=== PATIENT | female | born 1955 | race Caucasian/White ===

== ENCOUNTER → 2016-09-28 | Outpatient (CLI) | payer OTHER ==
[~2016-09-28] VITALS: Ht 167.6 cm; Wt 85.7 kg
[~2016-09-28] MED LIST: IBUP200C PO; LIDOCAINE 2% INJ 100 MG/5 ML SDV (FOR ANES.) As Ordered ONE; NS 1,000 ML IV ONE; PROPOFOL 500 MG/50 ML VIAL As Ordered ONE
--- NOTE | 2016-09-28 08:21 | ROOR ---
Patient Name: Rosenda Tsang Procedure Date: 09/28/2016 8:00 AM Date of : 1955 Age: 61 Room: [facility] Gender: Female Note Status: Finalized Procedure: Upper GI endoscopy + Biopsies Indications: Functional Dyspepsia, Heartburn Providers: Scar Arguelles MD Referring MD: MIKE RODRIGUEZ NP Requesting Provider: Medicines: Monitored Anesthesia Care Complications: No immediate complications. Procedure: Pre-Anesthesia Assessment: - The heart rate, respiratory rate, oxygen saturations, blood pressure, adequacy of pulmonary ventilation, and response to care were monitored throughout the procedure. The Endoscope was introduced through the mouth, and advanced to the second part of duodenum. The upper GI endoscopy was accomplished without difficulty. The patient tolerated the procedure well. Findings: The Z-line was irregular and was found 35 cm from the incisors. Multiple biopsies were obtained with cold forceps for evaluation to rule out Lewis's Esophagus randomly at the gastroesophageal junction. A small hiatal hernia was present. No other significant abnormalities were identified in a careful examination of the stomach. Biopsies were taken with a cold forceps in the gastric antrum for Helicobacter pylori testing. The exam of the duodenum was otherwise normal. Impression: - Z-line irregular, 35 cm from the incisors. - Small hiatal hernia. - Multiple biopsies were obtained at the gastroesophageal junction. - Biopsies were taken with a cold forceps for Helicobacter pylori testing. - The examination was otherwise normal. Recommendation: - Patient has a contact number available for emergencies. The signs and symptoms of potential delayed complications were discussed with the patient. Return to normal activities tomorrow. Written discharge instructions were provided to the patient. - High fiber diet. - Discharge patient to home. - Continue present medications. - Await pathology results. - Telephone GI clinic for pathology results in 1 week. - Check Portal Online for Path Results.([email or web address] - Return to referring physician. - Repeat upper endoscopy for surveillance based on pathology results. - The findings and recommendations were discussed with the patient's family. Scar Arguelles MD Scar Arguelles MD 09/28/2016 8:21:13 AM This report has been signed electronically. Number of Addenda: 0 Note Initiated On: 09/28/2016 8:00 AM Estimated Blood Loss: Estimated blood loss: none.
--- NOTE | 2016-09-28 08:45 | ROOR ---
Patient Name: Rosenda Tsang Procedure Date: 09/28/2016 8:02 AM Date of : 1955 Age: 61 Room: [facility] Gender: Female Note Status: Finalized Procedure: Colonoscopy to Cecum + Cold Snare Polypectomy + Hemoclip Indications: High risk colon cancer surveillance: Personal history of colonic polyps, Last colonoscopy: 2013 Providers: Scar Arguelles MD Referring MD: MIKE RODRIGUEZ NP Requesting Provider: Medicines: Monitored Anesthesia Care Complications: No immediate complications. Procedure: Pre-Anesthesia Assessment: - The heart rate, respiratory rate, oxygen saturations, blood pressure, adequacy of pulmonary ventilation, and response to care were monitored throughout the procedure. The Colonoscope was introduced through the anus and advanced to the cecum, identified by appendiceal orifice and ileocecal valve. The colonoscopy was performed without difficulty. The patient tolerated the procedure well. The quality of the bowel preparation was good. Findings: The perianal and digital rectal examinations were normal. Non-bleeding internal hemorrhoids were found during retroflexion. The hemorrhoids were small and Grade I (internal hemorrhoids that do not prolapse). Multiple small and large-mouthed diverticula were found in the recto-sigmoid colon, sigmoid colon and descending colon. A medium polyp was found in the splenic flexure. The polyp was sessile. The polyp was removed with a cold snare. Resection and retrieval were complete. A medium polyp was found in the proximal transverse colon. The polyp was sessile. The polyp was removed with a cold snare. Resection and retrieval were complete. To prevent bleeding after the polypectomy, one hemostatic clip was successfully placed (MR conditional). There was no bleeding at the end of the procedure. The exam was otherwise without abnormality on direct and retroflexion views. Impression: - Non-bleeding internal hemorrhoids. - Diverticulosis in the recto-sigmoid colon, in the sigmoid colon and in the descending colon. - One medium polyp at the splenic flexure, removed with a cold snare. Resected and retrieved. - One medium polyp in the proximal transverse colon, removed with a cold snare. Resected and retrieved. Clip (MR conditional) was placed. - The examination was otherwise normal on direct and retroflexion views. - The exam was otherwise normal to the cecum. Recommendation: - Patient has a contact number available for emergencies. The signs and symptoms of potential delayed complications were discussed with the patient. Return to normal activities tomorrow. Written discharge instructions were provided to the patient. - High fiber diet. - Discharge patient to home. - Continue present medications. - Await pathology results. - Telephone GI clinic for pathology results in 1 week. - Check Portal Online for Path Results.([email or web address]) - Repeat colonoscopy for surveillance based on pathology results. - The findings and recommendations were discussed with the patient's family. Scar Arguelles MD Scar Arguelles MD 09/28/2016 8:45:17 AM This report has been signed electronically. Number of Addenda: 0 Note Initiated On: 09/28/2016 8:02 AM Estimated Blood Loss: Estimated blood loss: none.
[2016-09-28 09:10] VITALS: BP 129/79
== END ==
LOC: M OPP 07:13
PROVIDERS: ATTEND Internal Medicine Gastroenterology
DX: Z12.11 Encounter for screening for malignant neoplasm of colon (principal); K64.0 First degree hemorrhoids; K57.30 Diverticulosis of large intestine without perforation or abscess without bleeding; D12.3 Benign neoplasm of transverse colon; R12 Heartburn; K22.8 Other specified diseases of esophagus; K44.9 Diaphragmatic hernia without obstruction or gangrene; K29.50 Unspecified chronic gastritis without bleeding; K22.70 Barrett's esophagus without dysplasia; Z87.891 Personal history of nicotine dependence

== ENCOUNTER → 2016-12-23 | Outpatient (CLI) | payer OTHER ==
[~2016-12-23] MED LIST changes: -IBUP200C PO; +IBUP200C10 PO; -LIDOCAINE 2% INJ 100 MG/5 ML SDV (FOR ANES.) As Ordered ONE; -NS 1,000 ML IV ONE; -PROPOFOL 500 MG/50 ML VIAL As Ordered ONE
--- NOTE | 2016-12-23 10:22 | REPMRS ---
Patient History The patient states she had a clinical breast exam in 11/12 Patient is postmenopausal. Family history of unknown cancer in father at age 58 and unknown cancer in sister at age 29. Took hormonal contraceptives for 8 years. Digital Woman Screen Mammo: December 23, 2016 - Exam #: [id number] Bilateral CC and MLO view(s) were taken. Technologist: Lilly Munson, Technologist Prior study comparison: August 16, 2013, bilateral bilat screen digital mammo, performed at [facility] ([facility]). April 27, 2012, bilateral bilat screen digital mammo, performed at [facility] ([facility]). FINDINGS: There are scattered fibroglandular densities. There has been no change in the appearance of the mammogram from the prior studies. There is a mild amount of residual fibroglandular tissue which is fairly symmetric. There is no interval development of dominant mass, architectural distortion, or clustered microcalcification suggestive of malignancy. ASSESSMENT: BI-RADS/ACR category 1 mammogram. Negative. Recommendation Routine screening mammogram in 1 year (for women over age 40). This mammogram was interpreted with the aid of an FDA-approved computer-aided dectection system. Electronically Signed By: Michael Orozco MD 12/23/16 [id number]
--- NOTE | 2016-12-26 12:21 | DEXA ---
AP SPINE L1 - L4 0.995 -1.5 -0.1 LT FEMUR TOTAL 0.944 -0.5 0.6 RT FEMUR TOTAL 0.917 -0.7 0.4 TOTAL BODY TOTAL OTHER DUAL FEMUR FRAX* ASSESSMENT Risk factors: None. 10 year probability of fracture Major osteoporotic fracture 7.5 % Hip fracture 0.5 % COMMENTS: Normal bone densitometry of the right hip. There is low bone density of the spine. There is low bone density of the left hip The decreased density of the spine does represent a significant change. The decreased density of the left hip does not represent a significant change. The increased density of the right hip does represent a significant change. The density of the spine has decreased 4.3% since the initial exam on 2011. The spine density has decreased 3.8% since the most recent exam on 08/16/2013. The density of the left hip has increased 1.5% since the initial exam on 2011. The density of the left hip has decreased 0.7% since the most recent exam on . The density of the right hip has increased 1.3% since the initial exam on 2011. The density of the right hip has increased 2.7% since the most recent exam on . FOLLOW-UP: Recommendation for the next bone density exam: 2 years. MATT
== END ==
LOC: M WHC 09:31
PROVIDERS: ATTEND Nurse Practitioner Family
DX: Z12.39 Encounter for other screening for malignant neoplasm of breast (principal); M85.9 Disorder of bone density and structure, unspecified

== ENCOUNTER → 2019-12-01 | Outpatient (CLI) | payer MEDICARE, BC ==
[~2019-12-01] MED LIST changes: -IBUP200C10 PO; +IBUP200C25 PO
== END ==
LOC: M LABSMTC 10:02
PROVIDERS: ATTEND Anesthesiology
DX: Z03.818 Encounter for observation for suspected exposure to other biological agents ruled out (principal); Z11.59 Encounter for screening for other viral diseases
CPT/HCPCS: C9803; U0003

== ENCOUNTER 2019-12-04 07:57 | Day surgery (SDC) | payer MEDICARE, BC ==
[~2019-12-04] VITALS: Ht 165.1 cm; Wt 88.9 kg
[~2019-12-04 07:57] MED LIST changes: +NS 1,000 ML IV ONE
[2019-12-04] MEDS ORDERED: fentaNYL 100 MCG/2 ML INJECTION (J3010) As Ordered ONE (09:29)
[2019-12-04] MEDS ORDERED: LIDOCAINE 2% 100MG/5ML SDV (FOR ANES.) As Ordered ONE (09:29)
[2019-12-04] MEDS ORDERED: propofoL 500 MG/50 ML VIAL As Ordered ONE (09:29)
--- NOTE | 2019-12-04 09:37 | ROOR ---
Patient Name: Rosenda Tsang Procedure Date: 12/04/2019 9:17 AM Date of : 1955 Age: 64 Room: [facility] Gender: Female Note Status: Finalized Procedure: Upper Endoscopy + Biopsies Indications: Heartburn, Follow-up of Lewis's esophagus Providers: Scar Arguelles MD Referring MD: MIKE RODRIGUEZ NP Requesting Provider: Medicines: Monitored Anesthesia Care Complications: No immediate complications. Procedure: Pre-Anesthesia Assessment: - The heart rate, respiratory rate, oxygen saturations, blood pressure, adequacy of pulmonary ventilation, and response to care were monitored throughout the procedure. The Endoscope was introduced through the mouth, and advanced to the second part of duodenum. The upper GI endoscopy was accomplished without difficulty. The patient tolerated the procedure well. Findings: The Z-line was variable and was found 35 cm from the incisors. Multiple biopsies were obtained with cold forceps for evaluation to rule out Lewis's Esophagus randomly at the gastroesophageal junction. A small hiatal hernia was present. No other significant abnormalities were identified in a careful examination of the stomach. The exam of the duodenum was otherwise normal. Impression: - Z-line variable, 35 cm from the incisors. - Small hiatal hernia. - Multiple biopsies were obtained at the gastroesophageal junction. - The examination was otherwise normal. Recommendation: - Patient has a contact number available for emergencies. The signs and symptoms of potential delayed complications were discussed with the patient. Return to normal activities tomorrow. Written discharge instructions were provided to the patient. - High fiber diet. - Discharge patient to home. - Follow an antireflux regimen. - Continue present medications. - Await pathology results. - Telephone GI clinic for pathology results in 1 week. - Return to referring physician. - The findings and recommendations were discussed with the patient. Scar Arguelles MD Scar Arguelles MD 12/04/2019 9:37:26 AM Electronically signed by Scar Arguelles MD Number of Addenda: 0 Note Initiated On: 12/04/2019 9:17 AM Estimated Blood Loss: Estimated blood loss: none.
--- NOTE | 2019-12-04 09:57 | ROOR ---
Patient Name: Rosenda Tsang Procedure Date: 12/04/2019 9:19 AM Date of : 1955 Age: 64 Room: [facility] Gender: Female Note Status: Finalized Procedure: Total Colonoscopy to Cecum + Cold Snare Polypectomy + Hemoclip Indications: High risk colon cancer surveillance: Personal history of colonic polyps, Last colonoscopy: 2016 Providers: Scar Arguelles MD Referring MD: MIKE RODRIGUEZ NP Requesting Provider: Medicines: Monitored Anesthesia Care Complications: No immediate complications. Procedure: Pre-Anesthesia Assessment: - The heart rate, respiratory rate, oxygen saturations, blood pressure, adequacy of pulmonary ventilation, and response to care were monitored throughout the procedure. The Colonoscope was introduced through the anus and advanced to the cecum, identified by appendiceal orifice and ileocecal valve. The colonoscopy was performed without difficulty. The patient tolerated the procedure well. The quality of the bowel preparation was excellent. Findings: The perianal and digital rectal examinations were normal. Non-bleeding internal hemorrhoids were found during retroflexion. The hemorrhoids were small and Grade I (internal hemorrhoids that do not prolapse). Scattered small-mouthed diverticula were found in the recto-sigmoid colon, sigmoid colon and descending colon. A small polyp was found at 60 cm proximal to the anus. The polyp was sessile. The polyp was removed with a cold snare. Resection and retrieval were complete. To prevent bleeding after the polypectomy, one hemostatic clip was successfully placed (MR conditional). There was no bleeding at the end of the procedure. The exam was otherwise without abnormality on direct and retroflexion views. Impression: - Non-bleeding internal hemorrhoids. - Diverticulosis in the recto-sigmoid colon, in the sigmoid colon and in the descending colon. - One small polyp at 60 cm proximal to the anus, removed with a cold snare. Resected and retrieved. Clip (MR conditional) was placed. - The examination was otherwise normal on direct and retroflexion views. - The exam was otherwise normal to the cecum. Recommendation: - Patient has a contact number available for emergencies. The signs and symptoms of potential delayed complications were discussed with the patient. Return to normal activities tomorrow. Written discharge instructions were provided to the patient. - High fiber diet. - Discharge patient to home. - Continue present medications. - Await pathology results. - Repeat colonoscopy in 5 years for surveillance. - Return to referring physician. - Telephone GI clinic for pathology results in 1 week. - The findings and recommendations were discussed with the patient. Scar Arguelles MD Scar Arguelles MD 12/04/2019 9:56:21 AM Electronically signed by Scar Arguelles MD Number of Addenda: 0 Note Initiated On: 12/04/2019 9:19 AM Estimated Blood Loss: Estimated blood loss: none.
[2019-12-04 10:15] VITALS: BP 126/79
== END 2019-12-04 10:25 | disposition home or self-care (01) ==
LOC: M OPP 07:57
PROVIDERS: ATTEND Internal Medicine Gastroenterology
DX: Z12.11 Encounter for screening for malignant neoplasm of colon (principal); Z86.010 Personal history of colon polyps; K63.5 Polyp of colon; K64.0 First degree hemorrhoids; K57.30 Diverticulosis of large intestine without perforation or abscess without bleeding; K22.70 Barrett's esophagus without dysplasia; K22.8 Other specified diseases of esophagus; K44.9 Diaphragmatic hernia without obstruction or gangrene; R12 Heartburn; K21.9 Gastro-esophageal reflux disease without esophagitis; Z87.891 Personal history of nicotine dependence; Z91.018 Allergy to other foods
CPT/HCPCS: 43239; 45385; 88305; J3010

== ENCOUNTER 2023-09-20 06:42 | Day surgery (SDC) | payer MEDICARE, BC ==
[~2023-09-20] VITALS: Ht 166.4 cm; Wt 87.1 kg
[~2023-09-20 06:42] MED LIST changes: +FLUO20CA22 PO; -NS 1,000 ML IV ONE; +OMEP40CA5 PO
[2023-09-20] MEDS ORDERED: ONDANSETRON 4MG 2ML VIAL As Ordered ONE (07:19)
[2023-09-20] MEDS ORDERED: propofoL 200 MG/20 ML VIAL As Ordered ONE (07:19)
[2023-09-20] MEDS ORDERED: LIDOCAINE 2% 100MG/5ML SDV (FOR ANES.) As Ordered ONE (07:19)
[2023-09-20] MEDS ORDERED: fentaNYL 100 MCG/2 ML INJECTION As Ordered ONE (07:19)
[2023-09-20] MEDS: NS 1,000 ML IV ONE (07:21)
[2023-09-20] MEDS ORDERED: ePHEDrine SULFATE 25 MG/5 ML(5MG/ML) SYRINGE As Ordered ONE (07:40)
[2023-09-20 08:02] VITALS: TEMP 97.1
[2023-09-20 08:27] VITALS: BP 120/97; O2SAT 94
== END 2023-09-20 08:29 | disposition home or self-care (01) ==
LOC: M OPP 06:42
PROVIDERS: ATTEND Internal Medicine Gastroenterology
DX: Z12.11 Encounter for screening for malignant neoplasm of colon (principal); Z86.010 Personal history of colon polyps; K64.0 First degree hemorrhoids; K57.30 Diverticulosis of large intestine without perforation or abscess without bleeding; K22.89 Other specified disease of esophagus; K22.70 Barrett's esophagus without dysplasia; K21.00 Gastro-esophageal reflux disease with esophagitis, without bleeding; Z87.891 Personal history of nicotine dependence; Z79.899 Other long term (current) drug therapy; Z91.018 Allergy to other foods
CPT/HCPCS: 43239; 88305; G0105; J2405; J3010

== ENCOUNTER → 2025-01-02 | Outpatient (REF) | payer MEDICARE, BC ==
[~2025-01-02] MED LIST changes: +FLUO-365 PO; -FLUO20CA22 PO
[2025-01-10 19:12] LABS: FACTOR V LEIDEN FOR MEDINET NEGATIVE
== END ==
LOC: M LAB REF 17:22
PROVIDERS: ATTEND Physician Assistant Medical
DX: Z13.0 Encounter for screening for diseases of the blood and blood-forming organs and certain disorders involving the immune mechanism (principal); Z82.41 Family history of sudden cardiac death